=== PATIENT | female | born 1980 | race African-American/Black ===

== ENCOUNTER 2023-01-14 15:09 | Emergency (ER) | payer MEDICARE, MEDICAID ==
[~2023-01-14] VITALS: Ht 175.3 cm; Wt 88.0 kg
[2023-01-14 15:12] VITALS: BP 92/46; PULSE 87; RESP 16; TEMP 98.5; O2SAT 98
[2023-01-14] MEDS ORDERED: ACETAMINOPHEN 325MG TABLET PO ONE (16:45)
[2023-01-14] MEDS ORDERED: TOPUD MT (17:57)
[2023-01-14] MEDS ORDERED: METH-653 MT (17:57)
== END 2023-01-14 18:24 | disposition home or self-care (01) ==
LOC: ER 15:09
DX: M79.602 Pain in left arm (principal); F32.9 Major depressive disorder, single episode, unspecified
CPT/HCPCS: 73030; 73060; 99284